=== PATIENT | male | born 1955 | race Caucasian/White ===

== ENCOUNTER 2016-07-28 06:46 | Day surgery (SDC) | payer OTHER ==
[2016-07-28] MEDS ORDERED: NS 500 ML IV 500 ML IV ONE (07:38)
[2016-07-28] MEDS ORDERED: VERSED ONE ×2 (07:59→15:06)
[2016-07-28] MEDS ORDERED: TETRACAINE 0.5% OPHTH 1 DOSE AFFEYE ONE ×5 (08:00→10:25)
[2016-07-28] MEDS ORDERED: VIGAMOX 0.5% OPHTH 1 DOSE AFFEYE ONE ×4 (08:01→10:40)
[2016-07-28] MEDS ORDERED: PROLENSA OPHTH 1 DOSE AFFEYE ONE (08:12)
[2016-07-28] MEDS ORDERED: ALPHAGAN-P OPHTH 1 DOSE AFFEYE ONE (08:13)
[2016-07-28] MEDS ORDERED: MYDRIACIL OPHTH 1 DOSE AFFEYE ONE ×4 (08:14→09:57)
[2016-07-28] MEDS ORDERED: AK-DILATE 2.5% OPHTH 1 DOSE OP ONE ×3 (08:14→08:17)
[2016-07-28] MEDS ORDERED: CYCLOGYL 1% OPHTH 1 DOSE OP ONE ×3 (08:14→08:17)
[2016-07-28] MEDS ORDERED: ALCAINE or OPHTHETIC AFFEYE ONE (09:22)
[2016-07-28] MEDS ORDERED: VERSED IVP ONE (09:52)
[2016-07-28] MEDS ORDERED: ALCAINE or OPHTHETIC 1 DOSE AFFEYE ONE (09:52)
[2016-07-28] MEDS ORDERED: AK-DILATE 10% OPHTH 1 DOSE AFFEYE ONE (09:55)
[2016-07-28] MEDS ORDERED: AK-DILATE 2.5% OPHTH 1 DOSE AFFEYE ONE (09:56)
[2016-07-28] MEDS ORDERED: CYCLOGYL 1% OPHTH 1 DOSE AFFEYE ONE (09:56)
[2016-07-28] MEDS ORDERED: BETADINE OPHTH SOLN 5% EACHEYE ONE (10:21)
[2016-07-28] MEDS ORDERED: BSS OPHTH (PLAIN) 500 ML with VANCOMYCIN HCL 500 MG VIAL 25 MG, ADRENALINE CHL INJ 1 MG IR ONE ×3 (10:21)
[2016-07-28] MEDS ORDERED: XYLOCAINE-MPF 1% IJ ONE (10:25)
[2016-07-28] MEDS ORDERED: ADRENALINE CHL INJ IJ ONE (10:25)
[2016-07-28] MEDS ORDERED: DUOVISC IO ONE (10:25)
[2016-07-28 11:04] VITALS: BP 140/79
== END 2016-07-28 11:10 | disposition home or self-care (01) ==
LOC: SURG1 06:46
PROVIDERS: ATTEND Ophthalmology
PROC: 08DJ3ZZ Extraction of Right Lens, Percutaneous Approach (ICD-10-PCS; principal; 2016-07-28 10:30)
PROC: 08RJ3JZ Replacement of Right Lens with Synthetic Substitute, Percutaneous Approach (ICD-10-PCS; principal; 2016-07-28 10:30)
DX: H25.011 Cortical age-related cataract, right eye (principal); H25.11 Age-related nuclear cataract, right eye; H25.041 Posterior subcapsular polar age-related cataract, right eye; H52.221 Regular astigmatism, right eye
CPT/HCPCS: A4217; J0170; J2250; J3370